=== PATIENT | female | born 1965 | race Caucasian/White ===

== ENCOUNTER 2018-03-30 16:17 | Inpatient (IN) | payer OTHER ==
[~2018-03-30] VITALS: Ht 160 cm; Wt 61.5 kg
[2018-03-30] MEDS ORDERED: TOFA5TAB PO (17:01)
[2018-03-30] MEDS ORDERED: ACET325T14 PO (17:01)
[2018-03-30] MEDS ORDERED: MELO7.5T5 PO (17:02)
[2018-03-30] MEDS ORDERED: METHOCARBAMOL 750 MG TABLET ONE ×2 (17:42)
--- NOTE | 2018-03-30 17:59 | NUR ---
NEW ORDERS, PATIENT TO HAVE CT. PATIENT PLACED ON HIGH FLOW OXYGEN MASK, 98% AT THIS TIME. PATIENT A+OX4. PATIENT/FAMILY UPDATED ON POC.
[2018-03-30] MEDS ORDERED: METHOCARBAMOL 750 MG TABLET PO ONE (18:00)
[2018-03-30] MEDS ORDERED: SODIUM CHLORIDE FLUSH 10ML SYR IVF ONE (18:00)
[2018-03-30] MEDS ORDERED: ONDANSETRON 2MG/ML, 2ML IVPush ONE (18:00)
[2018-03-30] MEDS ORDERED: MORPHINE SULFATE 4 MG/ML, 1ML IVPush PRN (18:00)
--- NOTE | 2018-03-30 18:08 | NUR ---
IV ESTABLISHED, CT AWARE. AWAITING CT. SPOUSE AT BEDSIDE, PATIENT ON 02 MONITORING, CALL LIGHT WITHIN REACH, REPORT TO KATY HUGHES.
[2018-03-30] MEDS ORDERED: MORPHINE SULFATE 4 MG/ML, 1ML ONE (18:10)
[2018-03-30] MEDS ORDERED: ONDANSETRON 2MG/ML, 2ML ONE (18:11)
--- NOTE | 2018-03-30 18:15 | NUR ---
REPORT FROM KATY ESPINOSA. PT MEDICATED PER EMAR. TO CT AT THIS TIME. PT REMAINS ON 15L BY NON-REBREATHER PER ERP ORDER. PT HAS PAIN WITH DEEP BREATHING, NO FURTHER RESPIRATORY DISTRESS NOTED. SPO2 >90% ON O2
--- NOTE | 2018-03-30 18:37 | NUR ---
PT RETURNED FROM CT, REPORTS SLIGHT IMPROVEMENT IN PAIN, 10/08. RESPIRATIONS REMAIN EVEN/UNLABORED. BP/SPO2 MONITORING PLACE.
[2018-03-30] MEDS ORDERED: FAMOTIDINE 20 MG/2 ML ONE (19:15)
[2018-03-30 19:21] LABS: ALBUMIN 4.1 g/dL (3.4-5.0); ANION GAP 8 mmol/L (5-15); CALCIUM 8.9 mg/dL (8.5-10.1); CHLORIDE 104 mmol/L (98-107); CREATININE 0.87 mg/dL (0.55-1.02)
[2018-03-30 19:24] LABS: BASOPHILS # (AUTO) 0.01 x10^3/uL (0-0.1); BASOPHILS % (AUTO) 0 % (0-1); EOSINOPHILS # (AUTO) 0.14 x10^3/uL (0-0.4); EOSINOPHILS % (AUTO) 1 % (1-7); LYMPHOCYTES # (AUTO) 1.09 x10^3/uL (1-3.4); LYMPHOCYTES % (AUTO) 10 % (22-44); MD NO; MEAN CORPUSCULAR HEMOGLOBIN 32.1 pg (27.0-34.8); MEAN CORPUSCULAR HGB CONC 34.4 g/dL (32.4-35.8); MEAN CORPUSCULAR VOLUME 93.3 fL (80-100); MEAN PLATELET VOLUME 7.7 fL (7.4-10.4); MONOCYTES # (AUTO) 0.45 x10^3/uL (0.2-0.8); MONOCYTES % (AUTO) 4 % (2-9); NEUTROPHILS # (AUTO) 9.79 x10^3/uL (1.8-6.8); NEUTROPHILS % (AUTO) 85 % (42-75); PLATELET COUNT 191 x10^3/uL (130-400); RED BLOOD COUNT 4.32 x10^6/uL (3.82-5.3); RED CELL DISTRIBUTION WIDTH 13.4 % (9.6-15.2)
[2018-03-30] MEDS ORDERED: FAMOTIDINE 20 MG/2 ML IVP ONE (19:30)
[2018-03-30] MEDS ORDERED: morphine SULFATE 10 MG/ML, 1ML IVPush PRN (20:00)
[2018-03-30] MEDS ORDERED: ACETAMINOPHEN 500 MG TABLET PO PRN (20:00)
[2018-03-30] MEDS ORDERED: BISACODYL 10 MG SUPP PR PRN (20:00)
[2018-03-30] MEDS ORDERED: POLYETHYLENE GLYCOL 17 GM PACKET PO PRN (20:00)
[2018-03-30] MEDS ORDERED: ONDANSETRON 2MG/ML, 2ML IVPush PRN (20:00)
[2018-03-30] MEDS ORDERED: PROMETHAZINE 25 MG/ML, 1ML IM PRN (20:00)
--- NOTE | 2018-03-30 20:00 | NUR ---
REPORT TO KATY KINNEY
[2018-03-30] MEDS: SODIUM CHLORIDE FLUSH 10ML SYR IVF SCH (20:22)
[2018-03-30] MEDS: KETOROLAC 30 MG/1 ML IV SCH (20:22)
[2018-03-30 22:26] VITALS: BP 110/72
[2018-03-31] MEDS: KETOROLAC 30 MG/1 ML IV SCH ×4 (02:20→20:18)
[2018-03-31 04:00] VITALS: BP 93/61
[2018-03-31 05:18] LABS: BASOPHILS # (AUTO) 0.02 x10^3/uL (0-0.1); BASOPHILS % (AUTO) 0 % (0-1); EOSINOPHILS # (AUTO) 0.06 x10^3/uL (0-0.4); EOSINOPHILS % (AUTO) 1 % (1-7); LYMPHOCYTES # (AUTO) 2.13 x10^3/uL (1-3.4); LYMPHOCYTES % (AUTO) 29 % (22-44); MD NO; MEAN CORPUSCULAR HEMOGLOBIN 31.6 pg (27.0-34.8); MEAN CORPUSCULAR VOLUME 93.1 fL (80-100); MEAN PLATELET VOLUME 7.8 fL (7.4-10.4); MONOCYTES # (AUTO) 0.67 x10^3/uL (0.2-0.8); MONOCYTES % (AUTO) 9 % (2-9); NEUTROPHILS # (AUTO) 4.44 x10^3/uL (1.8-6.8); NEUTROPHILS % (AUTO) 61 % (42-75); PLATELET COUNT 156 x10^3/uL (130-400); RED BLOOD COUNT 3.82 x10^6/uL (3.82-5.3); RED CELL DISTRIBUTION WIDTH 13.8 % (9.6-15.2)
[2018-03-31 05:20] LABS: ALBUMIN 3.2 g/dL (3.4-5.0); ANION GAP 6 mmol/L (5-15); CALCIUM 8.5 mg/dL (8.5-10.1); CHLORIDE 106 mmol/L (98-107)
[2018-03-31 05:25] LABS: ALANINE AMINOTRANSFERASE 45 U/L (12-78); ALKALINE PHOSPHATASE 67 U/L (45-117); BILIRUBIN,TOTAL 0.9 mg/dL (0.2-1.0); CREATININE 0.91 mg/dL (0.55-1.02); TOTAL PROTEIN 6.2 g/dL (6.4-8.2)
[2018-03-31 07:40] VITALS: BP 91/57
[2018-03-31] MEDS: SENNA/DOCUSATE TABLET PO SCH (08:55)
[2018-03-31] MEDS: SODIUM CHLORIDE FLUSH 10ML SYR IVF SCH ×2 (08:55→20:19)
[2018-03-31 14:00] VITALS: BP 95/61
[2018-03-31 19:26] VITALS: BP 102/63
[2018-04-01] MEDS: KETOROLAC 30 MG/1 ML IV SCH ×3 (02:34→13:50)
[2018-04-01 02:38] VITALS: BP 111/76
[2018-04-01 07:55] VITALS: BP 108/72
[2018-04-01] MEDS: SENNA/DOCUSATE TABLET PO SCH (08:02)
[2018-04-01] MEDS: SODIUM CHLORIDE FLUSH 10ML SYR IVF SCH (08:02)
[2018-04-01] MEDS ORDERED: TRAM-47 PO (14:10)
[2018-04-01] MEDS ORDERED: KETO10TA PO (14:10)
== END 2018-04-01 15:11 | disposition home or self-care (01) | DRG 200 ==
LOC: ED 18:07 → 3NE 19:31 → DCLOUNGE 04-01 15:00
PROVIDERS: ADMIT Hospitalist; ATTEND Hospitalist
DX: S27.0XXA Traumatic pneumothorax, initial encounter (principal); S22.42XA Multiple fractures of ribs, left side, initial encounter for closed fracture; J98.11 Atelectasis; M45.9 Ankylosing spondylitis of unspecified sites in spine; M43.10 Spondylolisthesis, site unspecified; M47.9 Spondylosis, unspecified; Z79.899 Other long term (current) drug therapy; Z90.49 Acquired absence of other specified parts of digestive tract; Z90.711 Acquired absence of uterus with remaining cervical stump; K08.109 Complete loss of teeth, unspecified cause, unspecified class; Z88.1 Allergy status to other antibiotic agents; Z88.8 Allergy status to other drugs, medicaments and biological substances; W18.39XA Other fall on same level, initial encounter; Y93.I9 Activity, other involving external motion; Y92.89 Other specified places as the place of occurrence of the external cause; Y99.8 Other external cause status
CPT/HCPCS: 36415; 71101; 72050; 72072; 99285; J3490; 71045; 71250; 74176; 80048; 80053; 82040; 85025; 96374; 96375; G0378; J1885; J2405